=== PATIENT | female | born 1945 | race Caucasian/White ===

== ENCOUNTER 2019-04-09 05:06 | Day surgery (SDC) | payer MEDICARE ==
[2019-04-04 15:07] LABS: BASOPHILS % (AUTO) 0.7 % (0-1); EOSINOPHILS # (AUTO) 0.2 X10'3 (0-0.9); EOSINOPHILS % (AUTO) 2.4 % (0-6); HEMATOCRIT 38.3 % (35.0-45.0); HEMOGLOBIN 12.8 g/dl (12.0-16.0); LYMPHOCYTES # (AUTO) 1.5 X10'3 (1.1-4.8); LYMPHOCYTES % (AUTO) 20.4 % (21-51); MEAN CORPUSCULAR HEMOGLOBIN 28.3 PG (27.0-31.0); MEAN CORPUSCULAR HGB CONC 33.5 g/dL (33.0-36.5); MEAN CORPUSCULAR VOLUME 84.6 FL (78-98); MEAN PLATELET VOLUME 7.9 FL (7.4-10.4); MONOCYTES # (AUTO) 0.4 X10'3 (0-0.9); MONOCYTES % (AUTO) 5.8 % (2-12); NEUTROPHILS # (AUTO) 5.1 X10'3 (1.8-7.7); NEUTROPHILS % (AUTO) 70.7 % (42-75); PLATELET COUNT 293 X10'3 (140-440); RED BLOOD COUNT 4.53 X10'6 (4.20-5.60); RED CELL DISTRIBUTION WIDTH 13.8 % (11.5-14.5); WHITE BLOOD COUNT 7.2 X10'3 (4.5-11.0)
[2019-04-04 15:17] LABS: ALBUMIN 3.8 G/DL (3.4-5.0); ANION GAP 9 (8-16); BLOOD UREA NITROGEN 12 MG/DL (7-18); BUN/CREATININE RATIO 17.9 (6.6-38.0); CALCIUM 8.8 MG/DL (8.5-10.1); CHLORIDE 106 MMOL/L (99-107); CREATININE 0.67 MG/DL (0.40-0.90); GLUCOSE 121 MG/DL (70-104); PARTIAL THROMBOPLASTIN TIME 27 SECONDS (22-32); POTASSIUM 3.4 MMOL/L (3.5-5.1); SODIUM 143 MMOL/L (135-145); TOTAL CARBON DIOXIDE 28.3 MMOL/L (24-32); eGFR 86 ML/MIN
[~2019-04-09] VITALS: Ht 157.5 cm; Wt 62.2 kg
[2019-04-09] VITALS (8 sets, daily range): BP systolic 148–172; BP diastolic 66–85
[~2019-04-09 05:06] MED LIST: DICY10CA88 PO; HYDR25TA4 PO; LISI40TA4 PO; OMEP20CA11 PO; ROPI1TAB4 PO; ROPI2TAB29 PO; TRAZ-219 PO
[2019-04-09] MEDS ORDERED: normal saline 1,000 ML IV SCH (06:00)
[2019-04-09] MEDS ORDERED: LORazepam 0.5 MG tablet PO PRN (06:00)
[2019-04-09] MEDS ORDERED: diphenhydrAMINE 25mg capsule PO PRN (06:00)
[2019-04-09] MEDS ORDERED: LIDOcaine 1% (10mg/ml)w/preservative injection 20ml MDV ONE (06:03)
[2019-04-09] MEDS ORDERED: fentaNYL/PF 50MCG/1 ML 2ML syringe ONE (06:03)
[2019-04-09] MEDS ORDERED: iohexol 350MG/ML 100ml bottle IV ONE ×2 (06:03→06:35)
[2019-04-09] MEDS ORDERED: midazolam 2 mg/2 ml injection ONE (06:03)
[2019-04-09] MEDS ORDERED: FERR28TA PO (06:10)
[2019-04-09] MEDS ORDERED: AMLO5TAB PO (06:10)
[2019-04-09] MEDS ORDERED: METO50TA7 PO (06:10)
[2019-04-09] MEDS ORDERED: PRAV80TA3 PO (06:10)
[2019-04-09] MEDS ORDERED: DICY20TA12 PO (06:10)
[2019-04-09] MEDS ORDERED: CHOL100046 PO (06:10)
[2019-04-09] MEDS ORDERED: MV-M1TAB46 PO (06:10)
[2019-04-09] MEDS ORDERED: LEVO50TA8 PO (06:10)
--- NOTE | 2019-04-09 06:15 | NUR ---
PT REFUSED ORAL MEDICATIONS, PT STATES SHE HAS "RESTLESS LEG" AND SHE TOOK MEDICATION THIS MORNING TO "KEEP MY LEGS FROM JERKING". EDUCATED PT ON REASON FOR ORDER, PT STATES SHE ISN'T NERVOUS AND IS "OKAY NOT TO TAKE EXTRA MEDICATION".
[2019-04-09] MEDS ORDERED: heparin 1,000unit/ml 10ml vial 10 ML ONE (06:35)
--- NOTE | 2019-04-09 07:11 | NUR ---
ATTEMPTED TO CALL Pt's [facility], PER HER REQUEST. HE WAS NOT IN WAITING ROOM OR IN RESTROOM PER MD.
[2019-04-09] MEDS ORDERED: proCHLORperazine 10 MG/2 ml inj IV PRN (07:30)
[2019-04-09] MEDS ORDERED: OXAZEpam 15mg capsule PO PRN (07:30)
[2019-04-09] MEDS ORDERED: HYDROcodone/acetaminophen 5mg/325mg tablet PO PRN (07:30)
[2019-04-09] MEDS ORDERED: HYDROcodone/acetaminophen 10/325mg tab PO PRN (07:30)
[2019-04-09] MEDS ORDERED: acetaminophen 325mg tablet PO PRN (07:30)
[2019-04-09] MEDS ORDERED: ondansetron/PF 4mg/2ml inj IV PRN (07:30)
== END 2019-04-09 09:30 | disposition home or self-care (01) ==
LOC: SSTAY O 05:06
PROVIDERS: ATTEND Internal Medicine Interventional Cardiology
DX: R07.9 Chest pain, unspecified (principal); R94.39 Abnormal result of other cardiovascular function study; I25.10 Atherosclerotic heart disease of native coronary artery without angina pectoris; I10 Essential (primary) hypertension; G47.33 Obstructive sleep apnea (adult) (pediatric); E03.9 Hypothyroidism, unspecified; G25.81 Restless legs syndrome; E78.5 Hyperlipidemia, unspecified; M85.80 Other specified disorders of bone density and structure, unspecified site; K21.9 Gastro-esophageal reflux disease without esophagitis; Z79.899 Other long term (current) drug therapy
CPT/HCPCS: 36415; 80048; 85025; 85610; 85730; 93005; 93459; 99152; 99153; C1769; J1644; J2001; J2250; J3010; J7030; Q9967; 93458; A4620; A6258

== ENCOUNTER 2019-06-17 16:16 | Emergency (ER) | payer MEDICARE ==
[~2019-06-17] VITALS: Ht 160 cm; Wt 65.0 kg
[~2019-06-17 16:16] MED LIST changes: +ACET-812 PO; +AMLO5TAB16 PO; +CHOL100046 PO; -DICY10CA88 PO; +DICY20TA12 PO; +FERR-119 PO; -HYDR25TA4 PO; +LEVO50TA8 PO; +METO50TA7 PO; +MV-M1TAB46 PO; -OMEP20CA11 PO; +OMEP40CA13 PO; +PRAV80TA3 PO; -ROPI1TAB4 PO; -ROPI2TAB29 PO; +ROPI2TAB5 PO
[2019-06-17 17:05] LABS: BASOPHILS # (AUTO) 0.1 X10'3 (0-0.2); EOSINOPHILS # (AUTO) 0.3 X10'3 (0-0.9); EOSINOPHILS % (AUTO) 4.3 % (0-6); HEMATOCRIT 31.1 % (35.0-45.0); HEMOGLOBIN 10.5 g/dl (12.0-16.0); LYMPHOCYTES # (AUTO) 1.5 X10'3 (1.1-4.8); LYMPHOCYTES % (AUTO) 20.8 % (21-51); MEAN CORPUSCULAR HEMOGLOBIN 27.8 PG (27.0-31.0); MEAN CORPUSCULAR HGB CONC 33.7 g/dL (33.0-36.5); MEAN CORPUSCULAR VOLUME 82.6 FL (78-98); MEAN PLATELET VOLUME 6.8 FL (7.4-10.4); MONOCYTES # (AUTO) 0.4 X10'3 (0-0.9); MONOCYTES % (AUTO) 6.1 % (2-12); NEUTROPHILS # (AUTO) 4.9 X10'3 (1.8-7.7); NEUTROPHILS % (AUTO) 67.8 % (42-75); PLATELET COUNT 387 X10'3 (140-440); RED BLOOD COUNT 3.77 X10'6 (4.20-5.60); RED CELL DISTRIBUTION WIDTH 14.1 % (11.5-14.5); WHITE BLOOD COUNT 7.2 X10'3 (4.5-11.0)
[2019-06-17] MEDS ORDERED: ketorolac trometh. 30mg/ml inj. IV ONE (17:15)
[2019-06-17] MEDS ORDERED: metoclopramide 5 mg/ml inj IV ONE (17:15)
[2019-06-17] MEDS ORDERED: diphenhydrAMINE 50 mg/ml inj IV ONE (17:15)
[2019-06-17 17:22] LABS: ALBUMIN 3.6 G/DL (3.4-5.0); ALBUMIN/GLOBULIN RATIO 1.2 (1.1-1.5); ALKALINE PHOSPHATASE 112 IU/L (46-116); ANION GAP 10 (8-16); ASPARTATE AMINO TRANSFERASE 7 U/L (10-37); BILIRUBIN,TOTAL 0.2 MG/DL (0.1-1.0); BLOOD UREA NITROGEN 11 MG/DL (7-18); BUN/CREATININE RATIO 17.2 (6.6-38.0); CALCIUM 8.9 MG/DL (8.5-10.1); CHLORIDE 103 MMOL/L (99-107); CREATININE 0.64 MG/DL (0.40-0.90); GLUCOSE 127 MG/DL (70-104); POTASSIUM 3.8 MMOL/L (3.5-5.1); SODIUM 139 MMOL/L (135-145); TOTAL CARBON DIOXIDE 26.4 MMOL/L (24-32); TOTAL PROTEIN 6.7 G/DL (6.4-8.2); eGFR > 90 ML/MIN
[2019-06-17 17:30] LABS: ALANINE AMINOTRANSFERASE 8 U/L (12-78)
[2019-06-17] MEDS ORDERED: BUTA-281 PO (18:35)
[2019-06-17 18:47] VITALS: BP 161/92
== END 2019-06-17 18:49 | disposition home or self-care (01) ==
LOC: ER 16:17
DX: R51 Headache (principal); H53.149 Visual discomfort, unspecified; I25.10 Atherosclerotic heart disease of native coronary artery without angina pectoris; I10 Essential (primary) hypertension; Z95.1 Presence of aortocoronary bypass graft; Z90.721 Acquired absence of ovaries, unilateral; Z86.2 Personal history of diseases of the blood and blood-forming organs and certain disorders involving the immune mechanism; Z79.899 Other long term (current) drug therapy
CPT/HCPCS: 36415; 70450; 71045; 80053; 84484; 85025; 93005; 96374; 96375; 99284; J1200; J1885; J2765